=== PATIENT | female | born 1960 | race Caucasian/White ===

== ENCOUNTER 2016-12-03 07:11 | Emergency (ER) | payer BC ==
[2016-12-03 07:18] VITALS: BP 106/60
--- NOTE | 2016-12-03 07:52 | UC ---
Nader Orta Benjamin, scribed for Destin Golden MD on 12/03/16 at 0740 . FLU HPI - HPI Summary HPI Summary: 56yo female with flu like symptoms for 5 to 7 days. Pt reports dry raspy cough, chills, runny nose, and WHITE, but denies fever, ear aches or neck pain. - History of Current Complaint Chief Complaint: UCRespiratory Stated Complaint: BACKACHE,COUGH,HEADACHE Time Seen by Provider: 12/03/16 07:27 Hx Obtained From: Family/Mining Captain Onset/Duration: Gradual Onset, Lasting Days, Still Present Severity Currently: Mild Severity Initially: Mild Associated Signs & Symptoms: Positive: Cough, Headache - Allergy/Home Medications Allergies/Adverse Reactions: Allergies Allergy/AdvReac Type Severity Reaction Status Date / Time No Known Allergies Allergy Verified 09/22/14 08:04 PMH/Surg Hx/FS Hx/Imm Hx Previously Healthy: Yes - Surgical History Surgical History: None - Family History Known Family History: Negative: Cardiac Disease, Hypertension, Diabetes - Social History Occupation: Employed Full-time Lives: With Family Alcohol Use: Rare Substance Use Type: None Smoking Status (MU): Never Smoked Tobacco Review of Systems Constitutional: Chills Skin: Negative Eyes: Negative ENT: Negative Respiratory: Cough Cardiovascular: Negative Gastrointestinal: Negative Genitourinary: Negative Motor: Negative Neurovascular: Negative Musculoskeletal: Negative Neurological: Headache Psychological: Negative All Other Systems Reviewed And Are Negative: Yes Physical Exam Triage Information Reviewed: Yes Appearance: No Pain Distress, Well-Nourished, Ill-Appearing - mildly Vital Signs: Initial Vital Signs Temp 98.9 F 12/03/16 07:16 Pulse 72 12/03/16 07:16 Resp 18 12/03/16 07:16 BP 106/60 12/03/16 07:16 Pulse Ox 98 12/03/16 07:16 Vital Signs Reviewed: Yes Eye Exam: Normal ENT Exam: Other - clear rhinorrhea ENT: Positive: Normal ENT inspection, Pharynx normal, Nasal congestion - clear Neck: Positive: Supple, Nontender Respiratory: Positive: Chest non-tender, Lungs clear, Normal breath sounds, No respiratory distress Cardiovascular: Positive: RRR, No Murmur Abdomen Description: Positive: Nontender, Soft Bowel Sounds: Positive: Present Musculoskeletal: Positive: Strength Intact, ROM Intact Neurological: Positive: Alert, Muscle Tone Normal Psychological: Positive: Age Appropriate Behavior Skin Exam: Normal Skin: Negative: rashes Flu Course/Dx - Course Course Of Treatment: Reviewed medication lists. - Differential Dx/Diagnosis Provider Diagnoses: BRONCHITIS Discharge - Discharge Plan Condition: Stable Disposition: HOME Prescriptions: Azithromyxin LANG (NF) [Z-Lang (Zithromax) 250 mg tabs #6] 2 tab PO .TODAY, THEN 1 DAILY #6 tab Patient Education Materials: Acute Bronchitis (ED) Referrals: Carl Ruiz MD [Primary Care Provider] - Additional Instructions: FOLLOW UP WITH YOUR DOCTOR. GET RE EVALUATED FOR ANY WORSENING OF YOUR CONDITION OR QUESTIONS OR CONCERNS. The documentation as recorded by the Nader gomez Benjamin accurately reflects the service I personally performed and the decisions made by me, Destin Golden MD.
== END 2016-12-03 07:57 | disposition home or self-care (01) ==
LOC: UCEAST 07:11
DX: J40 Bronchitis, not specified as acute or chronic (principal)
CPT/HCPCS: 99202; G0463